=== PATIENT | female | born 1985 | race African-American/Black ===

== ENCOUNTER 2018-02-01 08:21 | Day surgery (SDC) | payer OTHER ==
[~2018-02-01] VITALS: Ht 162.6 cm; Wt 88.5 kg
[2018-02-01] VITALS (9 sets, daily range): BP systolic 122–155; BP diastolic 56–88
[~2018-02-01 08:21] MED LIST: BENAZEPRIL HCL10 MG ORAL; LOESTRIN1 EAC1 PO; ceFAZolin 1gm in D5W 55ml IVP ONE; celeBREX 200mg Cap **SURGERY PATIENTS ONLY ORAL ONE; oxyCONTIN 20mg tab ORAL ONE
[2018-02-01] MEDS ORDERED: oxyCONTIN 20mg tab ORAL ONE (09:11)
[2018-02-01] MEDS ORDERED: celeBREX 200mg Cap **SURGERY PATIENTS ONLY ORAL ONE (09:11)
--- NOTE | 2018-02-01 09:30 | Anethesia Preoperative Eval ---
Anesthesia Pre-op PMH/ROS General Date of Evaluation: Feb 01, 2018 Anesthesiologist: Dk ASA Score: ASA 2 Mallampati Score Class I : Soft palate, uvula, fauces, pillars visible Class II: Soft palate, uvula, fauces visible Class III: Soft palate, base of uvula visible Class IV: Only hard plate visible Mallampati Classification: Class II Surgeon: Johnny Diagnosis: LEft shoulder tendonitis Surgical Procedure: Left shoulder arthroscopy Anesthesia History: none Family History: no anesthesia problems Allergies: Coded Allergies: Flori Nut (Verified Allergy, Severe, 01/30/18) swelling, throat closes Pork (Verified Allergy, Severe, 01/30/18) swelling, throat closes Uncoded Allergies: chocolate (Allergy, Severe, 01/30/18) swelling, throat starts to close iv contrast dye (Allergy, Severe, 02/01/18) swelling, throat closes nut (Allergy, Severe, 01/30/18) swelling throat closes seafood (Allergy, Severe, 01/30/18) swelling, throat closes Medications: see eMAR Past Medical History Cardiovascular: Reports: HTN; Denies: CAD, SD, valve dz, arrhythmia, other Pulmonary: Reports: asthma; Denies: COPD, MARY, other Gastrointestinal/Genitourinary: Denies: GERD, CRI, ESRD, other Neurologic/Psychiatric: Denies: dementia, CVA, depression/anxiety, TIA, other Endocrine: Denies: DM, hypothyroidism, steroids, other HEENT: Denies: cataract (L), cataract (R), glaucoma, [place] (L), [place] (R), other Hematology/Immune: Denies: anemia, DVT, bleeding disorder, other Musculoskeletal/Integumentary: Denies: OA, RA, DJD, DDD, edema, other Other: obesity PSxH Narrative: breast lumpectomy, c/s Anesthesia Pre-op Phys. Exam Physician Exam Last Vital Signs Date Time Temp Pulse Resp B/P (MAP) Pulse Ox O2 Delivery O2 Flow Rate FiO2 02/01/18 08:54 Room Air 02/01/18 08:53 97.9 68 18 122/71 (88) 99 97.9 Constitutional: NAD Cardiovascular: RRR Respiratory: CTA Airway Exam Mallampati Score: Class II MO: full ROM: full Anesthesia Pre-op A/P Labs see chart Urine Test Test 02/01/18 08:35 Urine HCG, Qualitative Negative (NEGATIVE) Studies Pre-op Studies: EKG - sr Risk Assessment & Plan Assessment: ASA II Plan: GA Status Change Before Surgery: No Pre-Antibiotics Drug: Rosa Elena Jean MD Feb 01, 2018 09:30
[2018-02-01] MEDS ORDERED: Midazolam 2mg/2ml Inj ONE (10:08)
[2018-02-01] MEDS ORDERED: Ketamine 500mg Inj ONE (10:08)
[2018-02-01] MEDS ORDERED: fentaNYL 100 mcg/2 mL IV ONE (10:08)
[2018-02-01] MEDS ORDERED: Propofol 200mg/20ml IV ONE (10:08)
[2018-02-01] MEDS ORDERED: Lidocaine 1% MPF 10mg/ml 5ml ONE ×2 (10:08→11:32)
--- NOTE | 2018-02-01 11:07 | Pre-Procedure Note/Attestation ---
Pre-Procedure Note/Attestation Complete Prior to Procedure Planned Procedure: left Procedure Narrative: shoulder arthroscopy, sad Indications for Procedure Pre-Operative Diagnosis: left shoulder impingement Attestation I attest that I discussed the nature of the procedure; its benefits; risks and complications; and alternatives (and the risks and benefits of such alternatives ), prior to the procedure, with the patient (or the patient's legal direct marketing representative). I attest that, if there was a reasonable possibility of needing a blood transfusion, the patient (or the patient's legal direct marketing representative) was given the [facility] standardized written summary, pursuant to the Tim Armando Blood Safety Act ([place] Health and Safety Code # 1645, as amended). I attest that I re-evaluated the patient just prior to the surgery and that there has been no change in the patient's H&P, except as documented below: Linus Turner MD Feb 01, 2018 11:07
--- NOTE | 2018-02-01 11:08 | Operative Note - PDOC ---
Operative Note Operative Note Pre-op Diagnosis: left shoulder impingement Procedure: see op report Post-op Diagnosis: same as pre-op plus Operative Findings: consistent w/pre-op dx studies Anesthesia: regional Specimen: none Complications: none Condition: stable Estimated Blood Loss: none Implant(s) used?: No Linus Turner MD Feb 01, 2018 11:08
[2018-02-01] MEDS ORDERED: Ropivacaine 5mg/ml Vial 30ml INJ ONE (11:32)
[2018-02-01] MEDS ORDERED: EPINEPHrine 1mg/1ml Amp ONE (11:46)
[2018-02-01] MEDS ORDERED: Bupivacaine 0.5% Inj 30 ml vial INJ ONE ×2 (11:46→11:51)
[2018-02-01] MEDS ORDERED: Metoclopramide 10mg/2ml Inj ONE (12:00)
[2018-02-01] MEDS ORDERED: Zemuron 50mg/5ml Inj IV ONE (12:00)
[2018-02-01] MEDS ORDERED: LR 1000ml ONE (12:00)
[2018-02-01] MEDS ORDERED: EPINEPHrine 1mg/1ml Amp IV ONE (12:50)
[2018-02-01] MEDS ORDERED: NS Irrig 4000ml IRRIG ONE (12:50)
[2018-02-01] MEDS ORDERED: Glycopyrrolate 0.2mg/ml 1ml Vial ONE (12:59)
[2018-02-01] MEDS ORDERED: Neostigmine 1mg/ml 10ml Inj ONE (12:59)
--- NOTE | 2018-02-01 13:44 | Immediate Post-Op Evaluation ---
Immediate Post-Op Evalulation Immediate Post-Op Evalulation Procedure: left shoulder arthroscopy Date of Evaluation: Feb 01, 2018 Time of Evaluation: 13:35 IV Fluids: 600 Blood Pressure Systolic: 131 Blood Pressure Diastolic: 77 Pulse Rate: 58 Respiratory Rate: 14 O2 Sat by Pulse Oximetry: 100 Temperature (Fahrenheit): 97.6 Pain Score (1-10): 0 Nausea: No Vomiting: No Complications none Patient Status: awake, reacts, patent Hydration Status: adequate Drug: ancef Given Within 1 Hr of Incision: Yes Time Given: 12:40 Liat Edward CRNA Feb 01, 2018 13:44
[2018-02-01] MEDS ORDERED: fentaNYL 100 mcg/2 mL IV PRN (13:45)
[2018-02-01] MEDS ORDERED: Metoclopramide 10mg/2ml Inj IVP PRN (13:45)
[2018-02-01] MEDS ORDERED: Acetaminophen (Non formulary) 100 ML IV ONE (13:45)
[2018-02-01] MEDS ORDERED: DiphenhydrAMINE 50mg/ml Inj IVP PRN (13:45)
--- NOTE | 2018-02-01 17:30 | Operative Note - Dictated ---
DATE OF OPERATION: 02/01/2018 PREOPERATIVE DIAGNOSIS: Left shoulder internal /impingement syndrome. POSTOPERATIVE DIAGNOSIS: Left shoulder traumatic impingement syndrome. PROCEDURES: 1. Left shoulder diagnostic arthroscopy. 2. Left shoulder subacromial decompression, bursectomy, and release of the CA ligament. SURGEON: Linus Turner M.D. ANESTHESIA: Interscalene with general. INDICATION FOR PROCEDURE: The patient is a pleasant female who has got progressive left shoulder pain, difficulty with range of motion and with overhead activities. She elected to undergo left shoulder arthroscopy. The risks, limitations, expectations, and complications of the procedure were discussed in detail. All questions were addressed. DESCRIPTION OF PROCEDURE: After informed consent was obtained, the patient was brought to the operating room. The patient was placed under interscalene with general anesthesia. The patient was then carefully placed in beach-chair position. Left shoulder was prepped and draped in sterile manner. Time-out was performed. Posterolateral stab incision was then made. Trocar was introduced into the glenohumeral joint. There was significant chondral damage in the glenohumeral joint. The anterior labrum appeared to be intact. Superior labrum was intact along with the biceps tendon and the undersurface of the rotator cuff. Camera was repositioned in the subacromial space. There was significant erythema along the CA ligament and along the undersurface of the acromion. CA ligament was released off the anterolateral aspect of the acromion to identify an acromial spur. Acromioplasty was from lateral to medial and completed from posterior to anterior. There was hypertrophic bursal tissue in the subacromial space and the bursal tissue was removed. Once that was done, the portal sites were closed with 3-0 Monocryl sutures. Steri-Strips and a sterile dressing were applied. The patient was awoken and taken to recovery room with stable vital signs. ESTIMATED BLOOD LOSS: None. COMPLICATIONS: None. SPECIMENS: None. IMPLANTS: None. Linus Turner M.D. DR: Carlos JOB#: [id number] CC:
[2018-02-01] MEDS ORDERED: Norco 5mg/325mg tab ORAL PRN (21:01)
[2018-02-01] MEDS ORDERED: Tylenol #3 tab (300mg/30mg) ORAL PRN (21:01)
[2018-02-01] MEDS ORDERED: D5 1/2NS 1,000 ML IV SCH (21:01)
[2018-02-01] MEDS ORDERED: HYDROmorphone 1mg/ml Carpuject SUBQ PRN (21:01)
[2018-02-04 11:48] VITALS: BP 149/84
--- NOTE | 2018-02-04 11:48 | 48 Hour Post Anesthesia Eval ---
Post Anesthesia Evaluation Procedure: left shoulder arthroscopy Date of Evaluation: Feb 04, 2018 Time of Evaluation: 11:48 Blood Pressure Systolic: 149 0: 84 Pulse Rate: 85 Respiratory Rate: 14 O2 Sat by Pulse Oximetry: 99 Airway: patent Nausea: No Vomiting: No Pain Intensity: 0 Hydration Status: adequate Cardiopulmonary Status: stable Mental Status/LOC: patient returned to baseline Post-Anesthesia Complications: none Follow-up care needed: N/A Liat Edward CRNA Feb 04, 2018 11:48
== END 2018-02-01 15:40 | disposition home or self-care (01) ==
LOC: SUR 08:21
DX: M75.42 Impingement syndrome of left shoulder (principal); I10 Essential (primary) hypertension; J45.909 Unspecified asthma, uncomplicated; E66.9 Obesity, unspecified; Z91.041 Radiographic dye allergy status; Z91.018 Allergy to other foods
CPT/HCPCS: 29822; 81025; J0171; J0690; J2250; J2405; J2704; J2710; J2765; J2795; J3010; J3490; 94003; 94150